=== PATIENT | female | born 1965 | race Caucasian/White ===

== ENCOUNTER 2021-02-01 04:33 | Emergency (ER) | payer MEDICAID | END 2021-02-01 08:22 | disposition home or self-care (01) | LOC: ERS 04:33 | DX: M79.661 Pain in right lower leg (principal); M79.662 Pain in left lower leg; I10 Essential (primary) hypertension; E11.9 Type 2 diabetes mellitus without complications; F17.210 Nicotine dependence, cigarettes, uncomplicated | CPT/HCPCS: 93970 ==